=== PATIENT | female | born 2000 | race Caucasian/White ===

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

== ENCOUNTER 2020-05-16 17:08 | Emergency (ER) | payer OTHER, SELFPAY ==
[~2020-05-16] VITALS: Ht 12.7 cm; Wt 62.6 kg
[2020-05-16 17:23] VITALS: BP 130/70
--- NOTE | 2020-05-16 17:40 | NUR ---
NO NEED NURSING CARE
--- NOTE | 2020-05-16 17:44 | NUR ---
Patient discharged with v/s stable. Written and verbal after care instructions given and explained. Patient alert, oriented and verbalized understanding of instructions. Ambulatory with steady gait. All questions addressed prior to discharge. ID band removed. Patient advised to follow up with PMD. Rx of IBUPROFEN & KEFLEX given. Patient educated on indication of medication including possible reaction and side effects. Opportunity to ask questions provided and answered.
== END 2020-05-16 17:44 | disposition home or self-care (01) ==
LOC: MED 17:08
DX: S81.812D Laceration without foreign body, left lower leg, subsequent encounter (principal); R03.0 Elevated blood-pressure reading, without diagnosis of hypertension; L08.9 Local infection of the skin and subcutaneous tissue, unspecified; Z98.890 Other specified postprocedural states; X58.XXXD Exposure to other specified factors, subsequent encounter
CPT/HCPCS: 99283

== ENCOUNTER 2020-05-23 01:24 | Emergency (ER) | payer OTHER, SELFPAY ==
[~2020-05-23] VITALS: Ht 152.4 cm; Wt 63.5 kg
[2020-05-23 01:26] VITALS: BP 132/82
--- NOTE | 2020-05-23 01:26 | NUR ---
TO BED # 11 AMBULATORY
--- NOTE | 2020-05-23 01:30 | NUR ---
PATIENT PROVIDED UA AND GIVEN TO CERTIFIED SURGICAL TECHNICIAN AT BEDSIDE.
--- NOTE | 2020-05-23 01:45 | NUR ---
PT 19F BIB SELF FOR C/O OF UMBILICAL PAIN RADIAITNG TO RLQ X 1 DAY. DENIES N/V/D. PATIENT STATES LAST BM WAS YESTERDAY. PATIENT BS PRESENT X 4 QUADRANTS. PATIENT STATES PAIN COMES AND GOES AND IS SHARP. PATIENT DENIES TAKING PAIN MEDICATION FOR PAIN MANAGEMENT. AFEBRILE. VSS. MEDHX: NONE ALLERGIES: NKA
--- NOTE | 2020-05-23 01:50 | NUR ---
ERMD AT BEDSIDE EVALUATING PATIENT.
[2020-05-23] MEDS ORDERED: ONDANSETRON 4 MG/2 ML VIAL IVP ONE (02:00)
[2020-05-23] MEDS ORDERED: KETOROLAC 30 MG/ML VIAL IVP ONE (02:00)
--- NOTE | 2020-05-23 02:00 | NUR ---
IV PLACED IN R AC, LABS AND BLOOD CULTURES DRAWN AND GIVEN TO HEEL SANDER.
[2020-05-23 02:14] LABS: APPEARANCE,URINE CLEAR (CLEAR); BILIRUBIN,URINE NEGATIVE (NEGATIVE); BLOOD, URINE 1+ (NEGATIVE); COLOR,URINE YELLOW (YELLOW); LEUKOCYTE ESTERASE ,URINE NEGATIVE (NEGATIVE); NITRITE, URINE NEGATIVE (NEGATIVE); PH,URINE 5.5 (5.0-9.0); UGLUCOSE NEGATIVE (NEGATIVE)
[2020-05-23] MEDS ORDERED: NACL 0.9% 1,000 ML IV ONE (02:15)
[2020-05-23 02:16] LABS: BASOPHILS # (AUTO) 0.1 K/uL (0.00-0.22); EOSINOPHILS # (AUTO) 0.8 K/uL (0-0.4); EOSINOPHILS % (AUTO) 7.2 % (0.0-4.0); HEMATOCRIT 38.3 % (36-48); HEMOGLOBIN 12.8 g/dL (12.0-16.0); LYMPHOCYTES # (AUTO) 3.4 K/uL (2.5-16.5); LYMPHOCYTES % (AUTO) 31.6 % (20.5-51.1); MEAN CORPUSCULAR HEMOGLOBIN 28 pg (27-31); MEAN CORPUSCULAR HGB CONC 33 g/dL (33-37); MEAN CORPUSCULAR VOLUME 83.7 fL (80-94); MONOCYTES # (AUTO) 0.7 K/uL (0.8-1.0); MONOCYTES % (AUTO) 6.6 % (1.7-9.3); NEUTROPHILS # (AUTO) 5.7 K/uL (1.8-7.7); NEUTROPHILS % (AUTO) 53.6 % (42.2-75.2); PLATELET COUNT (AUTO) 367 K/uL (140-450); RED BLOOD CELL COUNT(AUTO) 4.58 MIL/uL (4.20-5.40); RED CELL DISTRIBUTION WIDTH 13.2 % (11.6-13.7); WHITE BLOOD COUNT (AUTO) 10.6 K/uL (4.5-11.0)
[2020-05-23 02:23] LABS: RBC,URINE 0-5 /HPF (0-5); WBC,URINE 0 /HPF (0-5)
--- NOTE | 2020-05-23 02:27 | NUR ---
PATIENT TAKEN TO CT VIA W/C.
[2020-05-23 02:30] LABS: ALBUMIN 4.4 g/dL (3.4-5.0); ANION GAP 15.1 (8-16); CARBON DIOXIDE 26.8 mmol/L (21-32); CREATININE 0.8 mg/dL (0.6-1.3); POTASSIUM 3.9 mmol/L (3.5-5.1); TOTAL BILIRUBIN 0.2 mg/dL (0.0-1.0)
--- NOTE | 2020-05-23 03:45 | NUR ---
IV removed, catheter intact and site benign. Applied folded 4x4 gauze and tape to stop bleeding.
--- NOTE | 2020-05-23 03:48 | NUR ---
Patient discharged with v/s stable. Written and verbal after care instructions given and explained. Patient alert, oriented and verbalized understanding of instructions. Ambulatory with steady gait. All questions addressed prior to discharge. ID band removed. Patient advised to follow up with PMD. Rx of NAPROSYN AND BENTYL given. Patient educated on indication of medication including possible reaction and side effects. Opportunity to ask questions provided and answered.
== END 2020-05-23 03:48 | disposition home or self-care (01) ==
LOC: MED 01:24
DX: R10.9 Unspecified abdominal pain (principal)
CPT/HCPCS: 36415; 74176; 80053; 81001; 83605; 83690; 85025; 86140; 87040; 96361; 96374; 96375; 99284; J1885; J2405; J7030